=== PATIENT | female | born 1945 | race African-American/Black ===

== ENCOUNTER 2024-03-19 22:15 | Inpatient (IN) | payer MEDICARE ==
[~2024-03-19] VITALS: Ht 162.6 cm; Wt 64.9 kg
[~2024-03-19 22:15] MED LIST: VERA200C4 MT
[2024-03-19 22:30] VITALS: BP 143/76; PULSE 81; RESP 18; TEMP 36.5848
[2024-03-19] MEDS ORDERED: ACETAMINOPHEN 325MG TABLET PO PRN (23:00)
[2024-03-19] MEDS ORDERED: ZOLPIDEM TARTRATE 5MG TABLET PO PRN (23:00)
[2024-03-19] MEDS ORDERED: NITROGLYCERIN 0.4MG TABLET SL SL PRN (23:00)
[2024-03-19] MEDS ORDERED: CLONIDINE 0.1MG TABLET PO PRN (23:00)
[2024-03-19] MEDS ORDERED: IPRATROPIUM/ALBUTEROL 0.5-3(2.5)MG/3ML NEB HHN PRN ×2 (23:00→23:30)
[2024-03-19] MEDS ORDERED: MAGNESIUM/ALUMINUM HYDROXIDE/SIMETHICONE 30ML UDC PO PRN (23:00)
[2024-03-19] MEDS ORDERED: GUAIFENESIN 200MG/10ML SUGAR FREE UDC PO PRN (23:00)
[2024-03-19] MEDS ORDERED: ONDANSETRON HCL 4MG/2ML INJ IV PRN (23:00)
[2024-03-20 08:00] VITALS: BP 123/68; PULSE 75; RESP 18; TEMP 36.22512; O2SAT 99
[2024-03-20] MEDS: ASPIRIN 81MG TABLET PO SCH (09:28)
[2024-03-20] MEDS: ENOXAPARIN 40MG/0.4ML SYR SUBCUT SCH (09:29)
[2024-03-20] MEDS: ACETAMINOPHEN 325MG TABLET PO PRN (09:31)
[2024-03-20 09:33] LABS: BASOPHILS % 0.5 % (0.0-2.0); DIFFERENTIAL COMMENT 0; EOSINOPHILS % 7.5 % (0.0-5.0); HEMATOCRIT. 31.9 % (36.0-48.0); HEMOGLOBIN. 10.1 g/dL (12.0-16.0); LYMPHOCYTES % 40.2 % (20.0-50.0); MEAN CORPUSCULAR HEMOGLOBIN 24.2 pg (28.0-32.0); MEAN CORPUSCULAR HGB CONC 31.5 g/dL (31.0-37.0); MEAN CORPUSCULAR VOLUME 76.7 fL (81.0-99.0); MEAN PLATELET VOLUME 8.4 fl (7.4-10.4); MONOCYTES % 8.7 % (2.0-8.0); NEUTROPHILS % 43.1 % (40.0-76.0); PLATELET 318 x1000/uL (130-400); RED BLOOD CELL COUNT 4.16 mill/uL (4.2-5.4); RED CELL DISTRIBUTION WIDTH 14.9 % (11.6-14.6)
[2024-03-20 09:51] LABS: CHLORIDE 109 mEq/L (98-107); POTASSIUM 3.9 mEq/L (3.5-5.1); SODIUM 140 mEq/L (136-145)
[2024-03-20 09:54] LABS: CALCIUM 9.4 mg/dL (8.7-10.4); CARBON DIOXIDE 26 mEq/L (21-32)
[2024-03-20 09:59] LABS: CREATININE 0.7 mg/dL (0.6-1.0); GLUCOSE 109 mg/dL (70-105); UREA NITROGEN BLOOD 11 mg/dL (9-23)
[2024-03-20 10:00] LABS: ALANINE AMINOTRANSFERASE 9 IU/L (10-49)
[2024-03-20 10:01] LABS: ALBUMIN 3.7 g/dL (3.2-4.8); ASPARTATE AMINOTRANSFERASE 17 IU/L (<34); PREALBUMIN 10.4 mg/dl (10.0-40.0)
[2024-03-20 10:02] LABS: BILIRUBIN TOTAL 0.6 mg/dL (0.1-1.0); PROTEIN TOTAL 6.4 g/dL (6.0-8.3)
[2024-03-20 20:00] VITALS: BP 102/63; PULSE 79; RESP 18; TEMP 36.78072; O2SAT 98
[2024-03-20] MEDS: FAMOTIDINE 20MG TABLET PO SCH (21:28)
[2024-03-21 08:00] VITALS: BP 126/63; PULSE 74; RESP 18; TEMP 35.94732; O2SAT 97
[2024-03-21 08:56] VITALS: BP 126/63; PULSE 74; RESP 18; TEMP 35.94732; O2SAT 97
[2024-03-21] MEDS: LACTULOSE 20G/30ML UDC PO SCH (11:04)
[2024-03-21] MEDS ORDERED: BISACODYL 10MG SUPP PR PRN (11:15)
[2024-03-21 20:00] VITALS: BP 119/71; PULSE 80; RESP 18; TEMP 36.50292; O2SAT 98
[2024-03-21] MEDS: LIDOCAINE 5% PATCH TOP SCH (20:39)
[2024-03-22 07:58] VITALS: BP 118/55; PULSE 72; RESP 18; TEMP 36.44736; O2SAT 98
[2024-03-22 20:00] VITALS: BP 111/68; PULSE 74; RESP 17; TEMP 36.3918; O2SAT 98
[2024-03-22] MEDS: BUPROPION HCL 75MG TABLET PO SCH (21:16)
[2024-03-22] MEDS: DICLOFENAC SODIUM 75MG DR TABLET PO SCH (21:16)
[2024-03-22] MEDS: PREDNISONE 10MG TABLET PO SCH (21:16)
[2024-03-22] MEDS: PANTOPRAZOLE 40MG DR TABLET PO SCH (21:16)
[2024-03-22] MEDS: HYDROXYCHLOROQUINE SULFATE 200MG TABLET PO SCH (21:16)
[2024-03-22] MEDS: PREGABALIN 75MG CAPSULE PO SCH (21:17)
[2024-03-23 08:00] VITALS: BP 124/61; PULSE 76; RESP 18; TEMP 36.16956; O2SAT 98
[2024-03-23 11:43] LABS: CREATINE KINASE 164 IU/L (34-145)
[2024-03-23] MEDS: CHOLECALCIFEROL (D3) 1000 UNIT TABLET PO SCH (15:02)
[2024-03-23 20:00] VITALS: BP 95/57; PULSE 78; RESP 18; TEMP 36.78072; O2SAT 99
[2024-03-24 06:12] LABS: G6PD RBC 4.27 x10E6/uL (3.77-5.28)
[2024-03-24 07:56] VITALS: BP 100/59; PULSE 64; RESP 16; TEMP 36.22512; O2SAT 98
[2024-03-24 09:11] LABS: COMPLEMENT C3 164 mg/dL (82-167); COMPLEMENT C4 32 mg/dL (12-38); G6PD QUANTITATIVE 374 (127-427)
[2024-03-24 13:11] LABS: RNP ANTIBODY < 0.2 AI (0.0-0.9); SMITH ANTIBODY < 0.2 AI (0.0-0.9)
[2024-03-24] MEDS: ONDANSETRON 4MG ODT SL PRN (15:58)
[2024-03-24 20:00] VITALS: BP 123/58; PULSE 73; RESP 17; TEMP 36.28068; O2SAT 99
[2024-03-25 08:00] VITALS: BP 106/75; PULSE 78; RESP 18; TEMP 36.22512; O2SAT 98
[2024-03-25 09:06] LABS: ALDOLASE 3.5 U/L (3.3-10.3)
[2024-03-25 17:10] LABS: ANGIOTENSION CONVERTING ENZYME 31 U/L (14-82); ANTI-MYELOPEROXIDASE AB < 0.2 units (0.0-0.9); ANTI-PROTEINASE 3 ABS < 0.2 units (0.0-0.9)
[2024-03-25 20:00] VITALS: BP 104/62; PULSE 70; RESP 17; TEMP 36.55848; O2SAT 97
[2024-03-25] MEDS: DOCUSATE SODIUM 100MG CAPSULE PO PRN (21:18)
[2024-03-25 23:01] LABS: CLARITY URINE CLEAR (CLEAR); COLOR URINE YELLOW (YELLOW); GLUCOSE URINE NEGATIVE (NEGATIVE); KETONES URINE NEGATIVE (NEGATIVE); LEUKOCYTE ESTERASE URINE 2+ (NEGATIVE); NITRITE URINE NEGATIVE (NEGATIVE); OCCULT BLOOD URINE NEGATIVE (NEGATIVE); PROTEIN URINE NEGATIVE (NEGATIVE); SPECIFIC GRAVITY URINE 1.017 (1.005-1.030); UROBILINOGEN URINE 0.2 E.U./dL (0.2-1.0)
[2024-03-25 23:19] LABS: BACTERIA URINE NONE SEEN; RBC URINE NONE SEEN /hpf (0-2); SQUAMOUS EPITHELIAL CELL URINE FEW /lpf (RARE/1+)
[2024-03-26 08:00] VITALS: BP 115/70; PULSE 63; RESP 18; TEMP 36.00288; O2SAT 96
[2024-03-26] MEDS: ASPIRIN/ACETAMINOPHEN/CAFFEINE 250/250/65MG TABLET PO PRN (11:19)
[2024-03-26 13:07] LABS: ATYPICAL P-ANCA <1:20 titer (Neg:<1:20); CYTOPLASMIC C-ANCA <1:20 titer (Neg:<1:20); PERINUCLEAR P-ANCA <1:20 titer (Neg:<1:20)
[2024-03-26] MEDS: LACTULOSE 20G/30ML UDC PO SCH (14:04)
[2024-03-26 20:00] VITALS: BP 106/67; PULSE 73; RESP 18; TEMP 36.61404; O2SAT 98
[2024-03-27 08:00] VITALS: BP 130/81; PULSE 61; RESP 18; TEMP 35.89176; O2SAT 100
[2024-03-27 08:03] LABS: CARBON DIOXIDE 25 mEq/L (21-32); CHLORIDE 107 mEq/L (98-107); SODIUM 140 mEq/L (136-145)
[2024-03-27 08:04] LABS: CALCIUM 9.7 mg/dL (8.7-10.4)
[2024-03-27 08:08] LABS: CREATININE 1.1 mg/dL (0.6-1.0)
[2024-03-27 08:09] LABS: ALANINE AMINOTRANSFERASE 17 IU/L (10-49); GLUCOSE 92 mg/dL (70-105); UREA NITROGEN BLOOD 22 mg/dL (9-23)
[2024-03-27 08:10] LABS: ALBUMIN 3.8 g/dL (3.2-4.8)
[2024-03-27 08:11] LABS: ASPARTATE AMINOTRANSFERASE 22 IU/L (<34); BILIRUBIN TOTAL 0.4 mg/dL (0.1-1.0); PROTEIN TOTAL 6.6 g/dL (6.0-8.3)
[2024-03-27 08:15] LABS: BASOPHILS % 0.2 % (0.0-2.0); DIFFERENTIAL COMMENT 0; EOSINOPHILS % 0.6 % (0.0-5.0); HEMATOCRIT. 30.6 % (36.0-48.0); HEMOGLOBIN. 9.8 g/dL (12.0-16.0); LYMPHOCYTES % 25.9 % (20.0-50.0); MEAN CORPUSCULAR HEMOGLOBIN 24.6 pg (28.0-32.0); MEAN CORPUSCULAR VOLUME 76.7 fL (81.0-99.0); MEAN PLATELET VOLUME 8.3 fl (7.4-10.4); MONOCYTES % 9.5 % (2.0-8.0); NEUTROPHILS % 63.8 % (40.0-76.0); PLATELET 373 x1000/uL (130-400); RED BLOOD CELL COUNT 3.98 mill/uL (4.2-5.4); RED CELL DISTRIBUTION WIDTH 14.7 % (11.6-14.6)
[2024-03-27 20:00] VITALS: BP 91/66; PULSE 95; RESP 18; TEMP 36.22512; O2SAT 95
[2024-03-27 21:14] VITALS: BP 124/68; PULSE 68; O2SAT 96
[2024-03-28 04:51] LABS: ANA IFA Negative (.)
[2024-03-28 06:24] LABS: POTASSIUM 5.3 mEq/L (3.5-5.1)
[2024-03-28 06:25] LABS: CALCIUM 9.3 mg/dL (8.7-10.4)
[2024-03-28 06:30] LABS: CREATININE 1.3 mg/dL (0.6-1.0)
[2024-03-28 08:00] VITALS: BP 104/64; PULSE 75; RESP 18; TEMP 36.114; O2SAT 97
[2024-03-28] MEDS ORDERED: FAMOTIDINE 20MG TABLET PO SCH (09:00)
[2024-03-28] MEDS ORDERED: SODIUM POLYSTYRENE SULFONATE 15 G/60 ML BOT PO ONE (13:00)
[2024-03-28] MEDS: SODIUM CHLORIDE 0.9% 1,000 ML IV SCH (18:44)
[2024-03-28] MEDS: SODIUM ZIRCONIUM CYCLOSILICATE 10GM/PACKET PO NR (18:45)
[2024-03-28 20:00] VITALS: BP 106/69; PULSE 72; RESP 18; TEMP 36.72516; O2SAT 100
[2024-03-28 21:07] LABS: CLARITY URINE CLEAR (CLEAR); COLOR URINE YELLOW (YELLOW); GLUCOSE URINE NEGATIVE (NEGATIVE); KETONES URINE NEGATIVE (NEGATIVE); LEUKOCYTE ESTERASE URINE TRACE (NEGATIVE); NITRITE URINE NEGATIVE (NEGATIVE); OCCULT BLOOD URINE NEGATIVE (NEGATIVE); PH URINE 6.5 (4.5-8.0); PROTEIN URINE NEGATIVE (NEGATIVE); UROBILINOGEN URINE 0.2 E.U./dL (0.2-1.0)
[2024-03-28 22:04] LABS: BACTERIA URINE 1+; RBC URINE NONE SEEN /hpf (0-2); SQUAMOUS EPITHELIAL CELL URINE 1+ /lpf (RARE/1+); WBC URINE 0-2 /hpf (0-2)
[2024-03-29 08:00] VITALS: BP 95/58; PULSE 64; RESP 18; TEMP 35.89176
[2024-03-29 08:40] LABS: CHLORIDE 108 mEq/L (98-107); POTASSIUM 4.8 mEq/L (3.5-5.1); SODIUM 139 mEq/L (136-145)
[2024-03-29 08:41] LABS: CALCIUM 8.8 mg/dL (8.7-10.4); CARBON DIOXIDE 24 mEq/L (21-32)
[2024-03-29 08:46] LABS: GLUCOSE 98 mg/dL (70-105); UREA NITROGEN BLOOD 31 mg/dL (9-23)
[2024-03-29 20:00] VITALS: BP 112/64; PULSE 71; RESP 18; TEMP 36.72516; O2SAT 98
[2024-03-30 08:00] VITALS: BP 120/54; PULSE 78; RESP 18; TEMP 35.89176; O2SAT 99
[2024-03-30] MEDS: PREDNISONE 10MG TABLET PO SCH (10:34)
[2024-03-30] MEDS: LACTULOSE 20G/30ML UDC PO PRN (10:34)
[2024-03-30 20:00] VITALS: BP 141/82; PULSE 78; RESP 18; TEMP 36.61404; O2SAT 99
[2024-03-31 07:54] VITALS: BP 125/67; PULSE 68; RESP 18; TEMP 36.3918; O2SAT 96
[2024-03-31 08:08] LABS: BASOPHILS % 0.5 % (0.0-2.0); DIFFERENTIAL COMMENT 0; EOSINOPHILS % 3.5 % (0.0-5.0); HEMATOCRIT. 30.3 % (36.0-48.0); HEMOGLOBIN. 9.3 g/dL (12.0-16.0); MEAN CORPUSCULAR HEMOGLOBIN 24.1 pg (28.0-32.0); MEAN CORPUSCULAR HGB CONC 30.8 g/dL (31.0-37.0); MEAN CORPUSCULAR VOLUME 78.2 fL (81.0-99.0); MEAN PLATELET VOLUME 8.5 fl (7.4-10.4); MONOCYTES % 9.1 % (2.0-8.0); NEUTROPHILS % 41.9 % (40.0-76.0); PLATELET 349 x1000/uL (130-400); RED BLOOD CELL COUNT 3.87 mill/uL (4.2-5.4); RED CELL DISTRIBUTION WIDTH 15.5 % (11.6-14.6); WHITE BLOOD COUNT 7.6 x1000/uL (4.5-11.0)
[2024-03-31 08:16] LABS: CHLORIDE 113 mEq/L (98-107); POTASSIUM 4.3 mEq/L (3.5-5.1); SODIUM 143 mEq/L (136-145)
[2024-03-31 08:17] LABS: CALCIUM 8.6 mg/dL (8.7-10.4); CARBON DIOXIDE 25 mEq/L (21-32)
[2024-03-31 08:22] LABS: CREATININE 0.9 mg/dL (0.6-1.0); GLUCOSE 84 mg/dL (70-105); UREA NITROGEN BLOOD 18 mg/dL (9-23)
[2024-03-31 20:00] VITALS: BP 124/73; PULSE 74; RESP 18; TEMP 36.50292; O2SAT 99
[2024-04-01 07:54] VITALS: BP 100/65; PULSE 69; RESP 17; TEMP 36.22512; O2SAT 98
[2024-04-01 09:27] VITALS: RESP 17
[2024-04-01] MEDS ORDERED: BUPR75TA8 PO (10:23)
[2024-04-01] MEDS ORDERED: OMEP20TA23 MT (10:23)
[2024-04-01] MEDS ORDERED: PRED10TA PO (10:23)
[2024-04-01] MEDS ORDERED: ASPI-1160 PO (10:23)
[2024-04-01] MEDS ORDERED: HYDR200T35 PO (10:23)
[2024-04-01] MEDS ORDERED: CHOL-36 PO (10:23)
[2024-04-01 14:22] VITALS: BP 110/68; PULSE 72; TEMP 97.2; O2SAT 98
[2024-04-01 14:25] VITALS: BP 122/78; PULSE 78; TEMP 98; O2SAT 99
== END 2024-04-01 15:00 | disposition home health service (06) | DRG 551 ==
PROVIDERS: ADMIT Physical Medicine & Rehabilitation Spinal Cord Injury Medicine; ATTEND Internal Medicine
PROC: 3E0233Z Introduction of Anti-inflammatory into Muscle, Percutaneous Approach (ICD-10-PCS; principal; 2024-03-31)
PROC: 3E023BZ Introduction of Anesthetic Agent into Muscle, Percutaneous Approach (ICD-10-PCS; 2024-03-31)
DX: M48.061 Spinal stenosis, lumbar region without neurogenic claudication (principal); G82.50 Quadriplegia, unspecified; I21.4 Non-ST elevation (NSTEMI) myocardial infarction; I67.82 Cerebral ischemia; M62.82 Rhabdomyolysis; F33.1 Major depressive disorder, recurrent, moderate; N17.9 Acute kidney failure, unspecified; M48.04 Spinal stenosis, thoracic region; D63.8 Anemia in other chronic diseases classified elsewhere; E66.9 Obesity, unspecified; I10 Essential (primary) hypertension; E55.9 Vitamin D deficiency, unspecified; M13.88 Other specified arthritis, other site; G89.29 Other chronic pain; L98.9 Disorder of the skin and subcutaneous tissue, unspecified; M47.816 Spondylosis without myelopathy or radiculopathy, lumbar region; M48.02 Spinal stenosis, cervical region; M50.30 Other cervical disc degeneration, unspecified cervical region; M51.369 Other intervertebral disc degeneration, lumbar region without mention of lumbar back pain or lower extremity pain; M75.00 Adhesive capsulitis of unspecified shoulder; M79.7 Fibromyalgia; E87.5 Hyperkalemia; R68.2 Dry mouth, unspecified; R82.81 Pyuria; I25.2 Old myocardial infarction; Z91.81 History of falling; Z68.24 Body mass index [BMI] 24.0-24.9, adult
CPT/HCPCS: 36415; 73080; 73110; 73130; 73221; 74018; 76770; 80048; 80053; 81003; 82085; 82164; 82306; 82550; 82955; 82962; 83520; 83735; 84134; 85025; 85041; 86160; 86235; 86256; 86332; 86431; 92523; 97110; 97116; 97162; 97166; 97530; 97535; A6261; C1893; J1650; J7030; J7512; Q0162